=== PATIENT | female | born 1995 | race Caucasian/White ===

== ENCOUNTER → 2017-10-03 | Outpatient (CLI) | payer OTHER ==
[~2017-10-03] MED LIST: DOLOGEN CAPLET1 EACH PO
== END | disposition home or self-care (01) ==
LOC: PPHC LAB 15:38
DX: Z02.0 Encounter for examination for admission to educational institution (principal)

== ENCOUNTER 2017-11-09 08:24 | Emergency (ER) | payer OTHER ==
[~2017-11-09] VITALS: Ht 160 cm; Wt 59.0 kg
[2017-11-09] MEDS ORDERED: PROTONIX40 MG PO (12:22)
== END 2017-11-09 12:36 | disposition home or self-care (01) ==
LOC: ER 08:24
DX: K29.70 Gastritis, unspecified, without bleeding (principal)